=== PATIENT | male | born 1980 | race Caucasian/White ===

== ENCOUNTER 2018-01-28 20:17 | Emergency (ER) | END 2018-01-28 20:30 | disposition left against medical advice (07) ==

== ENCOUNTER 2018-08-07 19:14 | Emergency (ER) | payer MEDICAID ==
[~2018-08-07] VITALS: Ht 152.4 cm; Wt 66.2 kg
[~2018-08-07 19:14] MED LIST: LORAZAPAM
[2018-08-07 19:20] VITALS: Ht 152.4 cm; Wt 66.2 kg
[2018-08-07] MEDS ORDERED: CEPHALEXIN 500 MG CAP PO SCH (19:35)
[2018-08-07] MEDS ORDERED: OLANZAPINE (ODT) 5 MG TAB ODT ONE (20:00)
[2018-08-07] MEDS ORDERED: TRIMETHOPRIM/SULFAMETHOX (DS) TAB PO SCH (20:00)
[2018-08-07] MEDS ORDERED: CEPH-443 PO (20:47)
[2018-08-07] MEDS ORDERED: SULF1TAB31 PO (20:47)
[2018-08-07] MEDS ORDERED: OLAN5TAB5 PO (20:49)
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
[2018-08-07] MEDS ORDERED: ACETAMINOPHEN 500 MG TAB ONE (21:36)
[2018-08-07 21:43] VITALS: BP 129/77; PULSE 104; RESP 20
[2018-08-07] MEDS ORDERED: ACETAMINOPHEN 325 MG TAB PO ONE (22:00)
== END 2018-08-07 21:45 | disposition home or self-care (01) ==
LOC: E/R 19:14
DX: L03.115 Cellulitis of right lower limb (principal); F29 Unspecified psychosis not due to a substance or known physiological condition
CPT/HCPCS: 36415; 80053; 80307; 81003; 85025; Z7502; Z7610